=== PATIENT | female | born 1965 | race Caucasian/White ===

== ENCOUNTER 2021-07-06 09:08 | Inpatient (IN) | payer BC ==
[~2021-07-06] VITALS: Ht 162.6 cm; Wt 74.8 kg
[2021-07-06] MEDS ORDERED: ATORVASTATIN CA40 MG (09:27)
[2021-07-06] MEDS ORDERED: PROMETRIUM200 MG (09:28)
[2021-07-07] MEDS ORDERED: CELEBREX200MG PO (09:34)
[2021-07-07] MEDS ORDERED: GABAPENTIN100 M2 PO (09:35)
[2021-07-07] MEDS ORDERED: ULTRAM50 MG PO (09:36)
== END 2021-07-07 13:43 | disposition home or self-care (01) | DRG 512 ==
LOC: ER 09:08 → SURH 16:33
PROVIDERS: ADMIT Orthopaedic Surgery; ATTEND Orthopaedic Surgery
PROC: 0PSH04Z Reposition Right Radius with Internal Fixation Device, Open Approach (ICD-10-PCS; principal; 2021-07-06)
PROC: 0PUH0KZ Supplement Right Radius with Nonautologous Tissue Substitute, Open Approach (ICD-10-PCS; 2021-07-06)
DX: S52.591A Other fractures of lower end of right radius, initial encounter for closed fracture (principal); Z20.822 Contact with and (suspected) exposure to COVID-19; W18.09XA Striking against other object with subsequent fall, initial encounter; Y93.01 Activity, walking, marching and hiking; Y92.89 Other specified places as the place of occurrence of the external cause; Y99.8 Other external cause status
CPT/HCPCS: 25609; 20902; C1776

== ENCOUNTER → 2024-10-19 | Outpatient (CLI) | payer BC ==
[~2024-10-19] MED LIST: ATORVASTATIN CA40 MG; CELEBREX200MG PO; GABAPENTIN100 M2 PO; PROMETRIUM200 MG; ULTRAM50 MG PO
== END | disposition home or self-care (01) ==
LOC: RAD 10:34
PROVIDERS: ATTEND Obstetrics & Gynecology Gynecology
DX: M25.532 Pain in left wrist (principal)